=== PATIENT | female | born 1950 | race Caucasian/White ===

== ENCOUNTER → 2022-03-04 13:53 | Outpatient (CLI) | payer MEDICARE, SELFPAY ==
--- NOTE | 2022-03-04 19:21 | DI.NM.S_ITS ---
DATE OF SERVICE: 03/04/2022 PROCEDURE PERFORMED: Exercise treadmill stress test without imaging. ORDERING PROVIDER: CARTER Jane. INDICATIONS: The patient is a 71-year-old female with atypical epigastric and chest discomfort. FINDINGS: 1. The patient was able to exercise for 9 minutes, 31 seconds on a standard Cipriano protocol, suggesting exceptional exercise capacity with an SHAHNAZ of -70%, achieving 10.1 METs. 2. She had an exaggerated heart rate and blood pressure response to exercise with a resting heart rate of 90 BPM, increasing to a maximum of 169 BPM (115% of her predicted maximum). Her resting blood pressure was 150/92, increasing to a maximum of 208/110. 3. At rest, she reported a 4/10 epigastric and chest pressure that increased slightly with exertion and improved in recovery, but remained persistent. There were no other anginal type symptoms. She had moderate dyspnea at peak exercise. 4. Her resting ECG shows sinus rhythm with normal ST segments. With exercise, there are no significant ST-segment shifts. There were occasional isolated PACs and PVCs, rarely in couplets, but no other complex ectopy. IMPRESSION: 1. Normal exercise treadmill study for ischemia. 2. Exceptional exercise capacity with atypical resting chest discomfort with minimal exacerbation with stress, but no ECG abnormalities. 3. She had an exaggerated heart rate response to exercise and a mild hypertensive blood pressure response to exercise. 4. She had occasional PACs and PVCs, rarely in couplets, but no concerning or complex ectopy. Elke Rao - ELIZA/martha/mamie doc#: [id number]/job#: [id number] dd: 03/04/2022 17:03:00 dt: 03/04/2022 19:08:00 DICTATING MD/COPIES TO: Jason Gutierrez MD COPIES MNE: AJAY;
== END ==
PROVIDERS: PCP Nurse Practitioner Family; Referring Provider Nurse Practitioner Family; Visit Provider Nurse Practitioner Family
DX: R07.89 Other chest pain (principal); R10.13 Epigastric pain
CPT/HCPCS: 93017